=== PATIENT | male | born 1995 | race Caucasian/White ===

== ENCOUNTER 2022-08-25 17:02 | Outpatient (REF) | payer MEDICAID, SELFPAY ==
[2022-08-25 17:40] LABS: COVID-19 Test Positive (Negative); IDNOW Serial# 16C4AD1C
== END 2022-08-25 17:03 | disposition home or self-care (01) ==
LOC: HO.LAB 17:02
PROVIDERS: Visit Provider Internal Medicine
DX: Z20.822 Contact with and (suspected) exposure to COVID-19 (principal)
CPT/HCPCS: 87635